=== PATIENT | male | born 1980 | race Two or more races ===

== ENCOUNTER 2023-01-09 21:07 | Emergency (ER) | payer OTHER ==
[2023-01-09] MEDS ORDERED: traMADol 50 MG Tab PO ONE (21:08)
[2023-01-09] MEDS ORDERED: Ibuprofen 800 MG Tab PO ONE ×2 (21:08→22:24)
== END 2023-01-09 23:30 | disposition home or self-care (01) ==
LOC: FB.ED 21:07
DX: S79.922A Unspecified injury of left thigh, initial encounter (principal); W00.0XXA Fall on same level due to ice and snow, initial encounter
CPT/HCPCS: 73700; 99284; A9270